=== PATIENT | female | born 1945 | race Caucasian/White ===

== ENCOUNTER 2025-01-21 11:35 | Outpatient (CLI) | payer MEDICARE, SELFPAY ==
--- OUTSIDE RECORDS SUMMARY | 2023-10-25 04:15 | XMS_ITS ---
Author Organization Page Nicole Yung [facility] Address [address] [place] [address] Care Team Providers Care Psychology Intern Name Role Phone Marcos Munson MD Primary Care Provider UnavailLyndsey Amin Unavailable [phone] REASON FOR VISIT 1 month f/u injection Encounters Encounter Location Date Provider Diagnosis [facility] Ybarra [facility] [address] [id number] 10/25/2023 Lyndsey Corey Plan Of Treatment No Information Progress Notes * Marily DRIVERaDOB:1945 (79 yo F)Acc No.[id number]:10/25/2023 Progress Notes Patient: Kenia PARADA Provider: Randall Corey DPM, DABPM :1945 A ge:78 Y S ex:Female Date:10/25/2023 Address:[facility] [address] [place], [place] [id number] Pcp:Marcos Munson MD Subjective: * Chief Complaints: * 1 . 1 month f/u injection. * Medical History: Objective: * Vitals: Assessment: Plan: * Treatment: * Billing Information: * Visit Code: * Procedure Codes: * Electronic signature of Freda Corey DPM DABPM on 01/21/2025 at 02:19 PM CDT Sign off status: Pending * Provider: Randall Corey DPM, DABPM Date: 10/25/2023 Generated for Printi ng/Faxing/eTransmitting on: 01/21/2025 02:19 PM CDT
[2025-01-21 13:53] LABS: Hematocrit 42.3 % (37.0-47.0); Hemoglobin 13.4 g/dL (12.0-15.0); Immature Granulocyte Percent A 0.3 % (0-0.5); Lymphocytes Absolute Auto 2.17 K/mm3 (0.9-3.2); Mean Corpuscular HGB Conc 31.7 g/dl (32-36); Mean Corpuscular Hemoglobin 29.5 pg (26-34); Mean Corpuscular Volume 93.2 fl (80-100); Nucleated Red Blood Cells Absolute Auto 0.000 K/mm3 (0.0-0.012); Nucleated Red Blood Cells Perc 0.0 % (0.0-0.2); Platelet Count Result 189 k/mm3 (150-375); Red Blood Count 4.54 M/mm3 (4.2-5.4); White Blood Count 7.9 K/mm3 (4.5-10.0)
[2025-01-21 14:05] LABS: INR 1.1; Prothrombin Time 14.1 Seconds (11.1-14.7)
[2025-01-21 14:06] LABS: Partial Thromboplastin Time 28.4 Seconds (22.3-36.8)
--- OUTSIDE RECORDS SUMMARY | 2025-01-21 14:19 | XMS_ITS | Patient Health Record ---
Author Organization [facility] Address [address] [place] [address] Care Team Providers Care Funeral Director/Embalmer Name Role Phone Marcos Munson MD Primary Care Provider Rebecca Lyndsey Jaimes Unavailable [phone] Allergies No Known Allergies Reason For Referral No Information Medications Medication SIG (Take, Route, Frequency, Duration) Notes Start Date End Date Status Losartan Potassium 50 MG Oral; Duration: 90 Days Active Magnesium Oxide -Mg Supplement 400 (240 Mg) MG TAKE 1 TABLET BY MOUTH THREE TIMES DAILY Oral; Duration: 90 Days Active Isosorbide Mononitrate ER 30 MG Oral; Duration: 90 Days Acti ve Carvedilol 6.25 MG TAKE 1 TABLET BY HEATHER TH EVERY 12 HOURS Oral; Duration: 90 Days Active Levalbuterol HCl 1.25 MG/3ML USE 1 VIAL IN NEBULIZER EVERY 6 HOURS NEEDED Inhalation; Duration: 25 Days Active Triamcinolone Acetonide 0.1 % APPLY A THIN LAYER TO THE AFFECTED AREA BY TOPICAL ROUTE 2 TIMES PER DAY External; Duration: 15 Days Active Spironolactone 25 MG TAKE 1 TABLET BY MO UTH ONCE DAILY Oral; Duration: 90 Days Active Citalopram Hydrobromide 20 MG TAKE 1 TABLET BY MOUTH ONCE DAILY Oral; Duration: 90 Days Active Omeprazole 20 MG Oral; Duration: 90 Days Active LORazepam 0.5 MG Oral; Duration: 30 Days Active Phentermine HCl 30 MG TAKE 1 CAPSULE BY MOUTH ONCE DAILY Oral; Duration: 30 Days Active Pravastatin Sodium 40 MG TAKE 1 TABLET B Y MOUTH ONCE DAILY Oral; Duration: 90 Days Active Social History Tobacco Use: Social History Observation Description Date Details (start date - stop date) Never Smoker NA - NA Tobacco Use/Smoking Question Answer Notes Tobacco use: nonsmoker Problems Problem Type SNOMED Code ICD Code Onset Dates Problem Status W/U Status Risk Notes Problem Plantar fascial fibromatosis (62018586) Plantar fascial fibromatosis (M72.2) Active confirmed Plan Of Treatment No Information Insurance Providers Payer Name Payer Address Payer Phone Subscriber Number Group Number Insured Name Patient Relationship to Insured Coverage Start Date Coverage End Date [place] Medicare [address] [place] [phone] [id number] Kenia Driver Self - patient is the insured [place] [address] [place] [address] [id number] Kenia Driver Self - patient is the insured Medical (General) History Medical History History ICD Code asthma high blood pressure high cholesterol heart conditions Surgical History Surgery Date(Month/Year) Hip knee stents paulina sampson
--- OUTSIDE RECORDS SUMMARY | 2025-01-21 14:19 | XMS_ITS | Patient Health Record ---
Author Organization [facility] Address [address] [address] Care Team Providers Care Artistic Associate Name Role Phone TREVON MCCARTHY Primary Care Provider Luis Lu Unavailable [phone] Allergies Allergen (clinical drug ingredient) Drug/Non Drug Allergy documented on EMR Reaction Allergy Type Onset Date Status BP MED IN ELISSA FAMI LY (uncoded) Unknown Allergy Active Reason For Referral No Information Medications Medication SIG (Take, Route, Frequency, Duration) Notes Start Date End Date Status Aspirin Adult Low Dose 81 MG 1 tab(s) orally once a day Active PriLOSEC 40 MG 1 CAP(S) ORALLY ONCE A DAY *Please review and pick correct strength-formulat ion from Total-trax options. If intended option is not shown, discontinue and re-order from Quick Search* Active PRAVACHOL 40 MG 1 TAB(S) ORALLY ONCE A DAY (AT BEDTIME) *Please review for potential replacement for e-prescription and drug interaction check* Active MagOx 400 *Please review and pick correct strength-formulat ion from Total-trax options. If intended option is not shown, discontinue and re-order from Quick Search* Active hydroCHLOROthiazide 25 MG 1 tab(s) orall y once a day Active Klor-Con 10 10 MEQ 1 tab(s) orally 2 times a day Active Lopid 600 MG 1 tab(s) orally 2 times a day Active Plavix 75 MG 1 tab(s) orally once a day Active dilTIAZem HCl 240 MG/24 HOURS 1 CAP(S) ORALLY ONCE A DAY *Please review and pick correct strength-formulat ion from Total-trax options. If intended option is not shown, discontinue and re-order from Quick Search* Active Problems Problem Type SNOMED Code ICD Code Onset Dates Problem Status W/U Status Risk Notes Problem Endocrine disorder (671340544) Endocrine disorder NOS (259.9) Active confirmed Plan Of Treatment No Information Medical (General) History Medical History History ICD Code HTN Hyperlipidemia Surgical History Surgery Date(Month/Year) Stent 02/2011 gal bladder Hysterectomy, Partial Tubal Ligation Hospitalization History Reason Date(Month/Year) colon infection-diverticulitis 03/2013
--- OUTSIDE RECORDS SUMMARY | 2025-01-21 14:19 | XMS_ITS | Clinical Summary ---
Author Organization [facility] Address [address] [facility] [place] [address] Care Team Providers Care Coremaker Pipe Name Role Phone Tremayne Puckett MD Unavailable Unavailable Marcos Munson MD Primary Care Provider [phone] Source Comments [facility],non-owned Affiliates and Associated Physician Practices is amultiple site organization consisting of ambulatory clinics and hospital sitesin [place], [place], [place] and [place]. This disclosure is being madepursuant to the Care Everywhere program and may not contain all information available regarding this patient. Last updated 18.[facility] Allergies Active Allergy Reactions Criticality Noted Date Comments Lisinopril High 08/07/2010 All the --pril medications make her throat swell shut Fosinopril Sodium High 08/06/2010 Medications * Be aware that medications may not be up to date on this document. Alwaysverify current medications with the patient. aspirin EC (ECOTRIN) 81 MG tablet Take 1 Tab by mouth daily. 0 0 Active clopidogrel (PLAVIX) 75 MG tablet Take 1 Tab by mouth daily. 30 Tab 11 0 Active pravastatin (PRAVACHOL) 40 MG tablet Take 40 mg by mouth at bedtime. Active potassium chloride (KLOR-CON) 10 MEQ tablet Take 10 mEq by mouth daily. Active omeprazole (PRILOSEC) 20 MG capsule Take 1 Cap by mouth daily before breakfast. 30 Cap 0 1 Active gemfibrozil (LOPID) 600 MG tablet Take 600 mg by mouth 2 times daily,before breakfast and supper. Active magnesium oxide (MAG-OX) 400 MG tablet Take 400 mg by mouth 2 times daily. Active acetaminophen (TYLENOL) 325 MG tablet Take 1 Tab by mouth every 4 hours as needed. Maximum allowable Acetaminophen amount = 4 Grams (4000 mg) / 24 hours. 5 Active meclizine (ANTIVERT) 12.5 MG tablet Take 1 Tab by mouth every 6 hours as needed for Dizziness. 30 Tab 0 5 Active diltiazem coated beads 24hr (CARDIZEM CD) 240 MG capsule Take 1 Cap by mouth once daily. HOLD IF SY BP<120 &/or HR<64 5 Active hydrochlorothi azide (HYDRODIURIL) 12.5 MG TABS Take 1 Tab by mouth once daily. HOLD IF SY BP<120 5 Active Active Problems Problem Noted Date Diagnosed Date Vertigo 08/27/2014 Hypertriglyceridemia 03/24/2012 Anxiety 03/24/2012 Cholecystitis 03/24/2012 HTN 02/07/2012 GIL OM in 200902/07/2012 COPD 02/07/2012 Overview (01/28/2023): January 2023 Regulatory Update Resolved Problems Problem Noted Date Diagnosed Date Resolved Date Pure hyperglyceridemia 02/07/201203/24 Chest pain 03/13/2010 03/24/2012 Family History Medical History Relation Name Comments Cancer Maternal Aunt Diabetes Maternal Aunt Heart Failure Maternal Uncle Relation Name Status Comments Father Maternal Aunt Maternal Uncle Mother Social History Tobacco Use Types Packs/Day Years Used Date Smoking Tobacco: Former Cigarettes 1 40 1 05/13/1963 - 03/13/2004 Comments:quit 6years ago Alcohol Use Standard Drinks/Week Comments No 0 (1 standard drink = 0.6 oz pur e alcohol) Comments Unknown Sex and Gender Information Value Date Recorded Sex Assigned at Not on file Legal Sex 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 Gender Identity Not on file Sexual Orientation Not on file Last Filed Vital Signs Vital Sign Reading Time Taken Comments Blood Pressure 167/97 09/21/2014 1:27 PM CDT Pulse 103 09/21/2014 1:27 PM CDT Temperature 36.1 C (97 F) 09/21/2014 1:27 PM CDT Respiratory Rate 16 08/27/2014 11:21 AM CDT Oxygen Saturation 96% 08/27/2014 11:21 AM CDT Inhaled Oxygen Concentration - - Weight 69.4 kg (153 lb) 09/21/2014 1:27 PM CDT Height 150.5 cm (4' 11.25) 09/21/2014 1:27 PM C DT Body Mass Index 30.64 09/21/2014 1:27 PM CDT Plan of Treatment Health Maintenance Due Date Last Done Comments BONE DENSITY TESTING 1945 HEPATITIS C SCREENING 05/09/1964 DTAP/TDAP/TD VACCINES (1 - Tdap) 1965 PNEUMOCOCCAL VACCINE 50+ (1 of 2 - PCV) 1965 ZOSTER VACCINE (1 of 2) 1996 Respiratory Syncytial Virus (RSV) Vaccine Pt: or over 60 yrs (1 - 1-dose 75+ series) 2021 DEPRESSION SCREENING 04/29/2024 COVID-19 VACCINE ( - 2023-2 5 season) 2024 INFLUENZA VACCINE (#1) 2024 HEPATITIS B VACCINE Aged Out No longe r eligible based on patient's age to complete this topic HIB VACCINE Aged Out No longer eligi ble based on patient's age to complete this topic HPV VACCINE Aged Out No longer eligi ble based on patient's age to complete this topic MENINGOCOCCAL (Group B) VACC INE SHARED DECISION-MAKING Aged Out No longer eligibl e based on patient's age to complete this topic MENINGOCOCCAL GROUPS A/C/Y/W VACCINE Aged Out No longer eligible b ased on patient's age to complete this topic Insurance MEDICARE [facility] [place] [address] Advance Directives * Full Code (Latest Code Status on File) Date Activated Date Inactivated Comments 08/26/2014 5:57 PM 08/27/2014 3:10 PM * Full Code Date Activated Date Inactivated Comments 08/06/2010 7:38 PM 08/10/2010 2:17 AM * Full Code Date Activated Date Inactivated Comments 03/13/2010 4:50 PM 03/15/2010 12:53 AM * Full Code Date Activated Date Inactivated Comments 03/13/2010 2:42 PM 03/13/2010 4:50 PM Care Teams Coremaker Pipe Relationship Specialty Start Date End Date Marcos Munson MD [address] [place] [id number] PCP - General Family Medicine 08/25/14 Tremayne Puckett MD Cardiovascular Disease 02/07/12
[2025-01-21 14:43] LABS: Albumin Level 4.2 g/dL (3.5-5.1); Alkaline Phosphatase 98 U/L (38-126); Anion Gap 5 mmol/L (4-12); Bilirubin,Total 1.2 mg/dL (0.2-1.3); Blood Urea Nitrogen 25 mg/dL (7-17); Carbon Dioxide 28 mmol/L (22-30); Chloride 105 mmol/L (98-107); Estimated Glomerular Filt Rate 35; Potassium 4.1 mmol/L (3.4-5.0); Sodium 138 mmol/L (137-145); Total Protein 6.9 g/dL (6.3-8.2)
[2025-01-21 14:54] LABS: Alanine Aminotransferase 20 U/L (6-35); Aspartate Amino Transferase 28 U/L (14-36); Calcium 8.9 mg/dL (8.4-10.2); Glucose 97 mg/dL (65-110)
== END 2025-01-21 11:36 | disposition home or self-care (01) ==
LOC: ANHSURGERY 11:42
PROVIDERS: PCP Family Medicine; Visit Provider Urology
DX: N81.10 Cystocele, unspecified (principal); Z01.818 Encounter for other preprocedural examination
CPT/HCPCS: 36415; 80053; 85025; 85610; 85730; 86850; 86880; 86900; 86901; 86902; 86922; 87086

== ENCOUNTER 2025-01-29 03:02 | Day surgery (SDC) | payer MEDICARE, SELFPAY ==
--- NOTE | 2025-01-21 11:59 | PC.NURSE ---
[facility] has started construction of its new state of the art ER which will open Spring 2026. With this, we anticipate parking may be a challenge for some our surgical patients and families. Parking spaces are limited but are available for all Surgical, obstetrics, and ER patients sharing this lot. If you arrive and find you are having a hard time finding a parking space, please note that we understand the challenges, please drive around the hospital and park near Hospital Entrance 1. When you enter this entrance, you can ask a volunteer to direct or take you back to the surgical waiting area to check in. We appreciate everyone?s understanding of these expected challenges while we build for your future. Report to the Outpatient Waiting Room, entrance under the green pavilion located off [address], at time _6 AM on date __01/29/25 . Planned Procedure Time: __7:30 AM .? Time changes happen often and if your time is changed the preop area will call you the afternoon before. - You and your visitor will be asked to self-screen and do not enter if you have any COVID symptoms. Please call surgeon if you need to reschedule. - A mask is optional within the hospital at this time. Patients may have clear liquids (water, carbonated beverages, clear teas, apple juice) until 3 hours prior to surgery( 4:30 AM) with a maximum of 20 ounces. - No food from midnight until time of surgery and no smoking, or chewing tobacco (or any form of nicotine). No chewing gum, candy or mints. - Infants may have breast milk until 4 hours before surgery, infant formula 6 hours prior to surgery. - Children will be allowed to drink immediately following surgery.? If applicable, please bring a bottle or sippy cup to assist with drinking. Juice, water, soda, and popsicles are readily available.? For infants on formula, please bring formula the day of surgery.? Pacifiers are allowed. Take only the following medications with a SIP of water on the morning of surgery: __breztri inhaler,carvedilol,clonidine,isosorbide,lorazepam DO NOT STOP ANY OF YOUR OTHER PRESCRIPTION MEDICATIONS PRIOR TO SURGERY EXCEPT THE FOLLOWING Hold all vitamins and supplements for 3 days per anesthesiologist.last dose 01/25/25 Medications to discontinue per physician _aspirin per dr alston Date to take last dose Please no make-up, nail slovenian, hairspray, perfume, deodorant, or body powder the day of surgery.? No jewelry (including any body piercings) or valuables the day of surgery, leave them at home.? Please take a shower or bath the night before, or the morning of, surgery with an antibacterial soap.? Wear comfortable, loose fitting clothing.? Children are encouraged to wear pajamas. - Jewelry must be removed prior to entering the operating room.? Rings and piercings that are not removed may be cut off. - The hospital will not accept responsibility for valuables.? - Please leave all valuables, including medications, at home the day of surgery. If you are going home after surgery, a licensed newspaper delivery driver must drive you home.? - NO public transportation without another adult if you receive anesthesia. - We recommend that an adult stay with you for 24 hours following discharge. - We also recommend that you do not drive, make important decision, drink alcoholic beverages, or take any drugs that were not prescribed by your health care provider for at least 24 hours after your discharge time. For Pediatric surgeries, we recommend two adults accompany the child home. Follow any additional instructions given to you from your surgeon. VERBAL AND WRITTEN instructions given to ___PATIENT AND DAUGHTER_STACIE and asked if any additional questions and then verbalized understanding. Patient advised to call surgeon office or pre surgery nurse liaison [phone] if any additional questions.
[2025-01-21 12:02] VITALS: BMI 31.9
[2025-01-21 13:35] VITALS: BP 102/48; PULSE 75; RESP 18; TEMP 36.6; O2SAT 96
--- NOTE | 2025-01-24 08:45 | PM.IMHP ---
H&P: HPI History of Present Illness Date/Time: 01/24/25 08:45 Chief Complaint: POP Narrative: vaginal prolapse and ISD Review of Systems Review of Systems: All systems reviewed & are unremarkable except as noted in HPI and below PMFSH Social History Social History Smoking packs per day: 1 Smoking cigarettes per day: 20.0 Years smoked: 25 Smoking pack-years: 25.00 Smoking status: Former smoker Tobacco type: cigarettes Smoking end date: 04/29/99 Living arrangements: with family Spiritual care concerns: No Meds Home Medications and Allergies Home Medications ?Medication ?Instructions ?Recorded ?Confirmed ?Type aspirin 81 mg tablet 81 mg PO DAILY 01/21/25 01/21/25 History atorvastatin 40 mg tablet 40 mg PO QPM 01/21/25 01/21/25 History budesonide 160 mcg-glycopyr 9 2 inh inhalation BID 01/21/25 01/21/25 History mcg-formot 4.8 mcg/actuation HFA inhaler (Breztri Aerosphere) carvedilol 6.25 mg tablet 6.25 mg PO Q12H 01/21/25 01/21/25 History cholecalciferol (vitamin D3) 25 1,000 unit PO DAILY 01/21/25 01/21/25 History mcg (1,000 unit) capsule clonidine HCl 0.1 mg tablet 0.1 mg PO Q12H 01/21/25 01/21/25 History isosorbide mononitrate 30 mg 30 mg PO DAILY 01/21/25 01/21/25 History tablet,extended release 24 hr lorazepam 0.5 mg tablet 0.5 mg PO Q12H PRN anxiety 01/21/25 01/21/25 History losartan 100 mg tablet 100 mg PO DAILY 01/21/25 01/21/25 History magnesium oxide 400 mg (241.3 mg 400 mg PO TID 01/21/25 01/21/25 History magnesium) tablet meclizine 25 mg tablet 25 mg PO PRN PRN dizziness 01/21/25 01/21/25 History omeprazole 20 mg capsule,delayed 20 mg PO DAILY 01/21/25 01/21/25 History release ondansetron HCl 4 mg tablet 4 mg PO PRN PRN nausea 01/21/25 01/21/25 History spironolactone 25 mg tablet 25 mg PO DAILY 01/21/25 01/21/25 History Allergies Allergy/AdvReac Type Severity Reaction Status Date / Time lisinopril AdvReac Cough Verified 01/21/25 12:04 Exam Narrative: fixed urethra apex +5 Assessment and Plan Assessment and plan (1) Intrinsic sphincter deficiency (ISD): Code(s): N36.42 - Intrinsic sphincter deficiency (ISD) Status: Acute (2) Prolapse of vaginal vault after hysterectomy: Code(s): N99.3 - Prolapse of vaginal vault after hysterectomy Status: Acute Plan colpocleisis, bulking agent
[2025-01-29] VITALS (9 sets, daily range): BP systolic 107–152; BP diastolic 54–78; PULSE 68–76; RESP 16–20; TEMP 36.1–36.6; O2SAT 94–100; BMI 31.7
--- NOTE | 2025-01-29 06:55 | WPDANESEPPF ---
Anes - Initial Pre Proc Eval Procedure: Operation Date: 01/29/25 07:30 Proposed Procedures p Colpocleisis, Cystoscopy with Bulking Agent - Jose Vallejo MD Date/Time: 01/29/25 06:55 Surgeon: Jose Vallejo MD Pre Op Diagnosis: prolapse vag vault after hyst Patient Data Age: 79 Gender: F Height: 1.5 m Weight: 71.7 kg Last Vital Signs Temp 97.8 F 01/21/25 13:35 Pulse 75 01/21/25 13:35 Resp 18 01/21/25 13:35 BP 102/48 L 01/21/25 13:35 Pulse Ox 96 01/21/25 13:35 O2 Del Method Room Air 01/21/25 13:35 Allergies Allergy/AdvReac Type Severity Reaction Status Date / Time lisinopril AdvReac Cough Verified 01/21/25 12:04 Home Medications ?Medication ?Instructions ?Recorded ?Confirmed ?Type aspirin 81 mg tablet 81 mg PO DAILY 01/21/25 01/21/25 History atorvastatin 40 mg tablet 40 mg PO QPM 01/21/25 01/21/25 History budesonide 160 mcg-glycopyr 9 2 inh inhalation BID 01/21/25 01/21/25 History mcg-formot 4.8 mcg/actuation HFA inhaler (Breztri Aerosphere) carvedilol 6.25 mg tablet 6.25 mg PO Q12H 01/21/25 01/21/25 History cholecalciferol (vitamin D3) 25 1,000 unit PO DAILY 01/21/25 01/21/25 History mcg (1,000 unit) capsule clonidine HCl 0.1 mg tablet 0.1 mg PO Q12H 01/21/25 01/21/25 History isosorbide mononitrate 30 mg 30 mg PO DAILY 01/21/25 01/21/25 History tablet,extended release 24 hr lorazepam 0.5 mg tablet 0.5 mg PO Q12H PRN anxiety 01/21/25 01/21/25 History losartan 100 mg tablet 100 mg PO DAILY 01/21/25 01/21/25 History magnesium oxide 400 mg (241.3 mg 400 mg PO TID 01/21/25 01/21/25 History magnesium) tablet meclizine 25 mg tablet 25 mg PO PRN PRN dizziness 01/21/25 01/21/25 History omeprazole 20 mg capsule,delayed 20 mg PO DAILY 01/21/25 01/21/25 History release ondansetron HCl 4 mg tablet 4 mg PO PRN PRN nausea 01/21/25 01/21/25 History spironolactone 25 mg tablet 25 mg PO DAILY 01/21/25 01/21/25 History Patient hx anesthesia problems: none Family hx anesthesia problems: none Results Review: All pre-operative results and documents have been reviewed as part of the pre-operative evaluation. [facility] Social History Social History Smoking packs per day: 1 Smoking cigarettes per day: 20.0 Years smoked: 25 Smoking pack-years: 25.00 Smoking status: Former smoker Tobacco type: cigarettes Smoking end date: 04/29/99 Living arrangements: with family Spiritual care concerns: No Anes - Eval Final PreProcedure Day of Procedure 01/29/25 06:55 Patient weight: obese Lungs: normal air movement Airway: Mallampati scale class II and special considerations (Edentulous. ) Neurological: alert and oriented Last oral intake: >/= 8 hours ASA classification: III Emergent: no Anesthetic plan: proceed Anesthesia type and monitoring: general LMA and standard monitoring Results Review: All pre-operative results and documents have been reviewed as part of the pre-operative evaluation. Hyperlipidemia, s/p PTCA x 3 2019, ECHO 2024 w nml LVEF, mild . Informed Consent: The patient's anesthetic plan and its attendant risks and benefits were discussed with the patient/family/POA. Questions were solicited and answers provided to the satisfaction of the patient/family/POA.
[2025-01-29] MEDS: LACTATED RINGERS 1,000 ML 30 ML IV CONT ×2 (07:00→09:00)
--- NOTE | 2025-01-29 07:15 | WPDHPUPDATE1 ---
History and Physical Update Update Date/Time: 01/29/25 07:15 History and Physical has been reviewed, including an updated exam of the patient. There are NO changes in the patient's condition. Risks, benefits, and alternatives have been discussed and questions answered. Patient agrees to proceed with procedure.
[2025-01-29] MEDS: ceFAZolin 2 GM in SODIUM CHLORIDE 0.9% IV 50 ML 100 ML IVPB (07:29)
[2025-01-29] MEDS: BUPIVACAINE/EPINEPHRINE 0.5% 50 ML VIAL 20 ML INFILTRATE (08:07)
--- NOTE | 2025-01-29 09:13 | P.OP_ITS ---
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 Intrinsic sphincter deficiency confirmed on urodynamics. She is not sexually active. She is here t priscila for a colpocleisis as well as a bulking agent. She understands risks of bleeding, infection, damage surrounding organs, damage to the urinary tract, damage to the ureters or bladder, damage to the bowel, fistula formation, recurrence of prolapse, inability to penetrate of intercourse, postoperative voiding dysfunction including incontinence and retention, need for future procedures, need for catheterization. She agrees to proceed Description of Procedure She was correctly identified. Informed consent obtained. She was from the operating room. She was given general anesthesia. She was placed in dorsal lithotomy position. She was prepped and draped sterile fashion. Time-out was performed. [place] catheter was placed. She was given appropriate perioperative antibiotics. [place] retractor was placed. She had vaginal vault prolapse 5 cm beyond the introitus. She had female perineal laxity. She has a fixed urethra. Scarring on the anterior vaginal wall I grasped the prolapse with Allis clamps. I alfred a rectangle shaped area on the posterior vaginal wall and a rectangle shaped area in the anterior vaginal wall. I then infiltrated the posterior vaginal wall with local mixed with epinephrine and saline. I removed the mucosa off the posterior vaginal wall taking great care not to injure underlying rectum and not to the peritoneum. I then did the same on the anterior vaginal wall. I then performed a classic colpocleisis with interrupted 0 Vicryl sutures this essentially plicated the anterior vaginal wall to the posterior vaginal wall completing a anterior-posterior repair and a complete colpectomy/colpocleisis. I did this with interrupted pursestring 0 Vicryl sutures. I then closed mucosa to mucosa closing the vagina and completing the colpocleisis. I assured hemostasis before doing this. I then removed a noble-shaped area of mucosa perineum after anesthetizing the area. Of note she had poor tissue quality this area. I then performed a perineorrhaphy with interrupted 0 Vicryl suture. I then used a 2-0 Vicryl to close mucosa to mucosa. There was excellent support of the prolapse and narrowing of the vaginal introitus. I then performed cystoscopy. She had moderate trabeculations. Bladder without abnormalities. No surgical artifact or stones. I placed guidewires up both ureters to document ureteral integrity and patency. Of note the Glidewire was advanced for several cm bilaterally documenting patency of the ureters I then turned my attention towards the bulking agent. I picked a site mid urethra 2 cm distal bladder neck. I injected bulking agent circumferentially. I performed several pillows coapted urethra. I used 1 in 1 corner syringe in total. There was excellent bulking effect. Her bladder was left partially full. She was awakened transferred to PACU in stable condition. Estimated Blood Loss 30 Packing No Pathology None sent Complications No immediate complications Condition Stable
[2025-01-29] MEDS: oxyCODONE HCL (*CRX) 5 MG TAB IR PO (10:56)
--- NOTE | 2025-01-29 13:02 | SUR.PHASEII ---
1140 - #[id number] peters catheter placed under sterile conditions. Pt tolerated well. Draining pink tinged urine. Pt and family instructed regarding removal and given equipment to remove in AM.
== END 2025-01-29 12:00 | disposition home or self-care (01) ==
PROVIDERS: PCP Family Medicine; Visit Provider Urology
PROC: (CPT 57120; principal; 2025-01-29 07:30)
DX: N99.3 Prolapse of vaginal vault after hysterectomy (principal); N36.42 Intrinsic sphincter deficiency (ISD); E78.5 Hyperlipidemia, unspecified; E66.9 Obesity, unspecified; Z68.31 Body mass index [BMI] 31.0-31.9, adult; Z79.82 Long term (current) use of aspirin; Z79.51 Long term (current) use of inhaled steroids; Z98.61 Coronary angioplasty status; Z87.891 Personal history of nicotine dependence
CPT/HCPCS: 57260; 51715; J0690; A9270; J1100; J2405; J2704; J3010; J7120; L8606